=== PATIENT | female | born 1965 | race Caucasian/White ===

== ENCOUNTER 2019-01-19 11:19 | Emergency (ER) | payer OTHER, SELFPAY ==
[2019-01-19 11:21] VITALS: BP 108/66; PULSE 70; RESP 16; TEMP 36.2; O2SAT 98; BMI 22.7
--- NOTE | 2019-01-19 12:40 | ED.VISSUMM ---
- ER Visit Summary Date of Service: 01/19/19 Chief Complaint: Intermittent headache, feeling foggy and right elbow pain status post fall last evening on icy pavement History of Present Illness: The patient is a 53 F presents status post fall secondary to icy pavement. Patient states she struck the back of her head. There is no loss conscious. She had no trouble with sleep. She complains of feeling foggy. She denies photophobia. This may be slight blurred vision. She reports neck discomfort this morning. She denies paresthesia, anesthesia motors. She denies nausea or vomiting. She has no other complaints please read written note. Physical Examination: There is small occipital scalp hematoma noted. There is no clinical signs of basal skull fracture. Pupils equal round reactive. Extra muscle intact. No septal deviation hematoma. No midline cervical spine tenderness. Heart is regular without murmur, gallop or rub. S1 and S2 are normal. Lungs are clear to auscultation with good movement of air bilaterally. There is a small contusion lateral aspect of the right elbow. There is no pain the vision of the lateral medial epicondyle. Is no pain the patient with olecranon process. Is no pain abrasion over the radial head with supination pronation. She has full active range of motion. Axillary, median, radial and ulnar function intact. Radial pulses palpable. GCS is 15. Patient is alert and oriented ?3. Motor is 5/5. Sensation is intact. DTRs are symmetric without clonus or Babinski. Cranial nerves II through XII are intact. Finger to nose to finger was performed adequately. Test Results: None were indicated. Per the [place] CT head rule and the [place] rule radiologic imaging is not indicated. Emergency Department Course and Treatment: Examination, information regarding [place] CT head rule and [place] role and prognosis Treatment Plan: Follow-up with PCP/corporate care as needed Disposition: Discharged home Impression: Concussion without loss of consciousness initial encounter This note was generated with [employer] dictation software. It may contain incorrect words, spelling, and punctuation that were not noted in review of the chart prior to signing ED Disposition - Plan for ED Patient: Disposition: Home or Assisted Living Instructions: ED Concussion Referrals: Mc Cintron DO [Primary Care Provider] - [facility] [GROUP OF PHYSICIANS] - As Needed Additional Instructions: You may take either Aleve or ibuprofen for your headache and muscle pain. Recommend ice 6-8 times a day 20-30 minutes for the first 2-3 days since heat will make areas of injury worse.
--- NOTE | 2019-01-19 12:44 | ED.DCSUM_ITS ---
- ER Visit Summary Date of Service: 01/19/19 Chief Complaint: Intermittent headache, feeling foggy and right elbow pain status post fall last evening on icy pavement History of Present Illness: The patient is a 53 F presents status post fall secondary to icy pavement. Patient states she struck the back of her head. There is no loss conscious. She had no trouble with sleep. She complains of feeling foggy. She denies photophobia. This may be slight blurred vision. She reports neck discomfort this morning. She denies paresthesia, anesthesia motors. She denies nausea or vomiting. She has no other complaints please read written note. Physical Examination: There is small occipital scalp hematoma noted. There is no clinical signs of basal skull fracture. Pupils equal round reactive. Extra muscle intact. No septal deviation hematoma. No midline cervical spine tendern ess. Heart is regular without murmur, gallop or rub. S1 and S2 are normal. Lungs are clear to auscultation with good movement of air bilaterally. There is a small contusion lateral aspect of the right elbow. There is no pain the vision of the lateral medial epicondyle. Is no pain the patient with olecranon process. Is no pain abrasion over the radial head with supination pronation. She has full active range of motion. Axillary, median, radial and ulnar function intact. Radial pulses palpable. GCS is 15. Patient is alert and oriented ?3. Motor is 5/5. Sensation is intact. DTRs are symmetric without clonus or Babinski. Cranial nerves II through XII are intact. Finger to nose to finger was performed adequately. Test Results: None were indicated. Per the [place] CT head rule and the [place] rule radiologic imaging is not indicated. Emergency Department Course and Treatment: Examination, information regarding [place] CT head rule and [place] role and prognosis Treatment Plan: Follow-up with PCP/corporate care as needed Disposition: Discharged home Impression: Concussion without loss of consciousness initial encounter This note was generated with [employer] dictation software. It may contain incorrect words, spelling, and punctuation that were not noted in review of the chart prior to signing ED Disposition - Plan for ED Patient: Disposition: Home or Assisted Living Instructions: ED Concussion Referrals: Mc Cintron DO [Primary Care Provider] - [facility] [GROUP OF PHYSICIANS] - As Needed Additional Instructions: You may take either Aleve or ibuprofen for your headache and muscle pain. Recommend ice 6-8 times a day 20-30 minutes for the first 2-3 days since heat will make areas of injury worse.
== END 2019-01-19 13:08 | disposition home or self-care (01) ==
PROVIDERS: Emergency Provider Emergency Medicine; Family Provider Student in an Organized Health Care Education/Training Program; PCP Student in an Organized Health Care Education/Training Program
DX: S06.0X0A Concussion without loss of consciousness, initial encounter (principal); S00.03XA Contusion of scalp, initial encounter; R40.2410 Glasgow coma scale score 13-15, unspecified time; W00.9XXA Unspecified fall due to ice and snow, initial encounter; Y93.9 Activity, unspecified; Y92.9 Unspecified place or not applicable
CPT/HCPCS: 99282

== ENCOUNTER 2019-03-14 10:45 | Emergency (ER) | payer OTHER, SELFPAY ==
[2019-02-09 14:52] VITALS: BMI 22.7
[2019-03-14 10:46] VITALS: BP 120/72; PULSE 78; RESP 17; TEMP 36.4; O2SAT 100; BMI 23.3
--- NOTE | 2019-03-14 10:54 | CT_ITS ---
STUDY: CT ABDOMEN AND PELVIS WITHOUT CONTRAST REASON FOR EXAM: Female, 53 years old. Acute onset of right flank pain RADIATION DOSAGE (If Supplied By Facility): CTDIvol = ( 6.65 ) mGy, DLP = ( 300.82 ) mGycm TECHNIQUE: Transaxial images were obtained from the dome of the diaphragm to the symphysis pubis without oral contrast, and without intravenous contrast. Sagittal and coronal images were reconstructed. Individualized dose optimization techniques were used for this CT. COMPARISON: None. FINDINGS: The visualized lung bases are unremarkable. The visualized portions of the heart are within normal limits. Normal liver. Normal gallbladder and extrahepatic biliary system. Normal spleen. Normal pancreas. Normal bilateral adrenal glands. Mild right hydronephrosis with moderate hydroureter (and tortuosity) extending to the upper right pelvis with a 3 mm ureteric calculus evident on image 124. There are small calcifications of the left kidney measuring up to 4 mm without hydronephrosis. No ureteric calcifications on the left side. Normal visualized stomach. Normal small intestine. Normal colon. The appendix is visualized and appears normal. Normal abdominal aorta. Normal inferior vena cava. Normal retroperitoneum. Normal urinary bladder. Normal visualized uterus. There is a small umbilical hernia containing fat. Normal osseous structures. CT/Abdomen/Pelvis without Cont IMPRESSION: 1. Distal right ureter calculus with mild hydronephrosis and moderate hydroureter. 2. Nonobstructing left renal calculi. Electronically Signed: Jovani Hussein MD at 12:24 EDT , Service support ,
--- NOTE | 2019-03-14 10:56 | ED.VIS.GEN ---
History of Present Illness Chief Complaint: Flank Pain Informant: Patient Onset: Today Context: Sudden Onset Timing: Continuous, Waxes and wanes Quality: Severe colicky pain Location: Right lower quadrant and right flank Current Severity: Moderate Maximum Severity: Severe Worsened by: Nothing Relieved by: Nothing Associated Symptoms: Nausea Narrative: Patient is a 53-year-old female with no sniffing a past medical history. Last kidney stone that necessitated visit to ER was 11 years ago. She was awakened from sleep. She is taking several doses of Advil with no relief. She states normally the stone passes without significance. She does report nausea without vomiting diarrhea. She does report frequency and urgency. Denies hematuria or dysuria. She denies fever, shaking chills or night sweats. She denies HEENT, respiratory, cardiac symptoms. There is no history of trauma. She reports allergy to penicillin. Prior similar symptoms: Yes - 11 years ago Recent Illness/Hospitalization: No - Past Medical History (1) History of renal calculi Status: Acute Past Medical History - Allergies and Home Meds Allergies/Adverse Reactions: Allergies Penicillins Allergy (Verified 03/14/19 10:45) [facility] Primary Care Physician: Mc Cintron DO [Primary Care Provider] - Prior records reviewed: Yes - ER visit for concussion Past Medical History: - - Renal and ureteral lithiasis Surgical History: no surgical history Lives: Spouse/ Significant Other Smoking Status: Never smoker Alcohol: Rare Review of Systems General: Denies: Chills, Fever, Sweats Eyes: Denies: Visual changes - bilaterally, Diplopia ENT: Denies: Rhinorrhea, Sore throat Cardiovascular: Denies: Chest pain, Palpitations Respiratory: Denies: Dyspnea, Cough, Dyspnea on exertion Gastrointestinal: Reports: Abdominal pain - Right lower quadrant/inguinal region. Denies: Nausea, Vomiting, Diarrhea, Melena, Hematochezia Genitourinary: Reports: Frequency. Denies: Dysuria, Hematuria Musculoskeletal: Reports: Back pain - Right flank. Denies: Extremity Pain Skin: Denies: Rash, Wounds Neurological: Denies: Headache, Weakness, Numbness Hematologic: Denies: Easy bruising, Easy bleeding Allergy: Denies: Uticaria Physical Exam Vital Signs/Narrative: Vital Signs Temp Pulse Resp BP Pulse Ox 03/14/19 10:46 97.5 F L 78 17 120/72 100 General: Well nourished, Well developed, Acute Distress Head: Normocephalic, Atraumatic Eyes: Perrl, EOMI. Negative for: Pale conjunctiva, Scleral icterus ENT: Moist mucous membranes, No rhinorrhea Neck: Supple, Nontender Cardiovascular: Regular rate, Regular rhythm, No murmurs, Normal S1, Normal S2 Respiratory: No distress, CTA bilaterally, Chest nontender Abdomen: Soft, Nontender, Nondistended, Normal bowel sounds, No masses Back: Nontender, Normal Inspection. Negative for: CVA tenderness Extremities: Nontender, No edema Skin: Normal color, No rash Neurological: Alert, Oriented x3, Cranial nerves II-XII grossly intact, Normal Strength, Normal Sensation Psychological: Normal affect, Normal Mood Diagnostic/Tx/Re-eval Impressions Abdomen/Pelvis CT 03/14/19 10:54 IMPRESSION: 1. Distal right ureter calculus with mild hydronephrosis and moderate hydroureter. 2. Nonobstructing left renal calculi. Electronically Signed: Jovani Hussein MD at 12:24 EDT , Service support , 03/14/19 10:54 Abdomen/Pelvis without Cont [CT] Stat Laboratory Results 03/14/19 10:50 Urine Color Yellow Urine Clarity Clear Urine pH 6.0 Ur Specific [place] 1.020 Urine Protein 30 H Urine Glucose (UA) Normal Urine Ketones 5 H Urine Occult Blood 250 H Urine Nitrite Positive H Urine Bilirubin Negative Urine Urobilinogen Normal Ur Leukocyte Esterase 100 H Urine RBC 5-10 SEEN Urine WBC 5-10 SEEN Ur Squamous Epith Cells 0-5 SEEN Urine Bacteria 1+ Urine Mucus 0 SEEN - Medical Decision Making With abrupt onset of discomfort that is waxing waning and unable to find position of comfort suspect patient has an obstructing ureteral lithiasis on the right. IV was established. She received IV Toradol and Zofran. We will obtain UA and CT of the abdomen and pelvis without contrast to evaluate for location, size of stone and for hydro-nephrosis and hydroureter I was informed at 1117 the patient is writhing in pain. Dilaudid was ordered. I was informed at 1135 patient is still in significant pain. Additional Dilaudid was ordered. Since patient has pyuria with bacteria culture was sent. She received a dose of IV ciprofloxacin. She is in no discomfort presently. Plan is to discharge to home with outpatient follow-up with urology. She was instructed to return immediately if she develops a fever has shaking chills or unable to keep any medication down. ED Disposition - Plan for ED Patient: Disposition: Home or Assisted Living Diagnosis: Hydronephrosis with urinary obstruction due to ureteral calculus, Urinary tract infection Instructions: ED Stone Renal W Colic, ED Kidney Infec Female Prescriptions: Oxycodone HCl/Acetaminophen [Percocet 5/325] 1 tablet PO Q6H PRN PRN 5 Days #20 tablet PRN Reason: Pain Ciprofloxacin HCl 500 mg PO BID #14 tablet Referrals: Mc Cintron DO [Primary Care Provider] - Angel Noguera MD [STAFF PHYSICIAN] - 5-7 Days
[2019-03-14] MEDS: Ondansetron 4 MG/2 ML Vial IV (11:05)
[2019-03-14] MEDS: 0.9% Normal Saline 1,000 ML 250 ML IV (11:05)
[2019-03-14] MEDS: Ketorolac 30 MG/ML Syringe 15 MG IV (11:06)
--- NOTE | 2019-03-14 11:20 | ED.RN ---
THIS RN TO BEDSIDE TO REASSESS PAIN, PT DENIES ANY RELIEF, DR. CELIS MADE AWARE, ADDITIONAL ORDERS OBTAINED.
[2019-03-14] MEDS: HYDROmorphone 0.5 MG/0.5 ML SYRINGE IV ×2 (11:22→11:39)
--- NOTE | 2019-03-14 11:36 | ED.RN ---
PAIN REASSESSED, PT STATES THE DILAUDID TOOK THE EDGE OFF BUT COMPLAINS OF CONTINUED PAIN, DR. CELIS MADE AWARE.
[2019-03-14 11:44] LABS: Mucous, Urine 0 SEEN /hpf (<or=2+)
[2019-03-14 12:00] LABS: Bacteria 1+ /hpf (None Seen); Color, Urine Yellow (Yellow); Glucose, Dipstick Normal (Normal); Ketone-Dipstick 5 mg/dl (Negative); Leukocyte Esterase-Dipstick 100 /ul (Negative); Nitrite-Dipstick Positive (Negative); Occult Blood-Urine 250 /ul (Negative); Protein-Dipstick 30 mg/dl (Negative); Red Blood Cells-Urine 5-10 SEEN /hpf (0-5); Squamous Epithelial Cells - UA 0-5 SEEN /hpf (5-10); Urine Bilirubin Dipstick Negative (Negative); Urine Clarity Clear (Clear); Urine Urobilinogen Normal (Normal); White Blood Cells 5-10 SEEN /hpf (0-5)
[2019-03-14] MEDS: HYDROmorphone 1 MG/ML Syringe IV (12:41)
[2019-03-14 12:47] VITALS: BP 113/68; PULSE 67; RESP 17; O2SAT 97
[2019-03-14] MEDS: Ciprofloxacin 400 MG/200 ML BAG 200 MG IV (13:31)
[2019-03-14 14:43] VITALS: BP 105/52; PULSE 72; RESP 17; O2SAT 100
--- NOTE | 2019-03-14 14:44 | ED.RN ---
IV DC'ED, CATHETER INTACT, SMALL GAUZE DRESSING PLACED. DISCHARGE INSTRUCTIONS GIVEN TO AND REVIEWED WITH PATIENT AND SPOUSE, BOTH DENY QUESTIONS OR CONCERNS AND VOICE UNDERSTANDING OF DISCHARGE INSTRUCTIONS. URINE STRAINERS GIVEN WITH PATIENT TO GO HOME WITH AND INSTRUCTED ON USAGE. PATIENT TO EXIT VIA WHEELCHAIR.
== END 2019-03-14 14:45 | disposition home or self-care (01) ==
PROVIDERS: Emergency Provider Emergency Medicine; Family Provider Student in an Organized Health Care Education/Training Program; PCP Student in an Organized Health Care Education/Training Program
DX: N13.2 Hydronephrosis with renal and ureteral calculous obstruction (principal); N39.0 Urinary tract infection, site not specified; Z87.442 Personal history of urinary calculi
CPT/HCPCS: 74176; 81001; 87077; 87086; 87088; 87186; 96361; 96365; 96375; 96376; 99283; J7030; A4216; J0744; J2405

== ENCOUNTER → 2020-10-12 18:02 | Outpatient (CLI) | payer OTHER, SELFPAY | PROVIDERS: PCP Student in an Organized Health Care Education/Training Program; Referring Provider Nurse Practitioner Family; Visit Provider Nurse Practitioner Family | DX: Z11.59 Encounter for screening for other viral diseases (principal) | CPT/HCPCS: 87635; 88305; C9803; U0003 ==

== ENCOUNTER 2023-08-22 06:01 | Day surgery (SDC) | payer OTHER, SELFPAY ==
[2023-08-22] VITALS (9 sets, daily range): BP systolic 105–117; BP diastolic 65–80; PULSE 65–84; RESP 16; TEMP 36.3–36.8; O2SAT 94–100; BMI 25.0
[2023-08-22 06:51] LABS: Internal QC Validated? YES +Cl - CLEAR BKGD; Pregnancy, Urine Negative Negative
[2023-08-22] MEDS: Lactated Ringers 1,000 ML 15 ML IV (06:57)
[2023-08-22 06:58] LABS: Hematocrit 41.6 % (37-47); Mean Corp Hgb Conc 33.7 g/dL (32-36); Mean Corpuscular Hgb 30.6 pg (27.0-32.0); Mean Corpuscular Volume 90.8 fL (81-99); Mean Platelet Vol. 9.2 fl (6.2-12.0); Platelet Count 242 K/mm3 (150-450); RBC Distribution Width CV 12.7 % (11.6-14.6); RBC Distribution Width SD 42.2 fl (35.1-43.9); Red Blood Count 4.58 M/mm3 (4.2-5.4); White Blood Count 5.4 K/mm3 (4.4-11.0)
--- NOTE | 2023-08-22 07:24 | PCM.HP.BLA ---
History and Physical Date of Admission: 08/22/23 PROBLEM: PMB ? DIAGNOSIS: PMB ? PAST SURGICAL HISTORY: PAST SURGICAL HISTORYExpand by Default PAST SURGICAL HISTORY Procedure Laterality Date ? COLONOSCOPY FLX DX W/COLLJ SPEC WHEN PFRMD ? 02/19/2018 ? Colonoscopy ? ? PAST MEDICAL HISTORY: PAST MEDICAL HISTORYExpand by Default PAST MEDICAL HISTORY Diagnosis Date ? 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 Benign head tremor ? ? mild ? Concussion ? ? Cyst of right breast ? ? benign ? Dystonia ? ? Lactose intolerance 01/2020 ? (normal spontaneous vaginal delivery) ? ? 1996,2002 ? 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 Renal stone ? ? calcium oxalate ? TMJ diseases ? ? ? SUBJECTIVE: PMB on HRT. No further bleeding ? SOCIAL HISTORY: SOCIAL HISTORYExpand by Default Social History ? Tobacco Use ? Smoking status: Never ? Smokeless tobacco: Never Vaping Use ? Vaping Use: Never used Substance Use Topics ? Alcohol use: Yes ? ? Comment: Occasionally ? Drug use: No ? ? ALLERGIES ALLERGIES Allergen Reactions ? Penicillins Unknown ? Current Outpatient Medications on File Prior to Visit Medication Sig ? valACYclovir (VALTREX) 500 mg tablet Take 1 tablet by mouth twice daily as needed. ? amitriptyline (ELAVIL) 25 mg tablet Take 1 tablet by mouth daily at bedtime. ? [id number] mg cap Take by mouth. ? FLAXSEED ? ? MAGNESIUM GLYCINATE-MAG OXIDE ORAL Take by mouth. 5oo mg ? famotidine (PEPCID) 20 mg tablet Take 1 tablet by mouth at bedtime as needed. ? cholecalciferol, Vitamin D3, (VITAMIN D3) 1,250 mcg (50,000 unit) cap capsule Take 1 capsule by mouth one time a week. ? tamsulosin (FLOMAX) 0.4 mg Take 1 capsule by mouth daily at bedtime. As needed for kidney stone flank pain (Patient taking differently: Take 0.4 mg by mouth as needed. As needed for kidney stone flank pain) ? adapalene (DIFFERIN) 0.1 % cream Apply 1 application to affected area daily at bedtime. ? diclofenac sodium (VOLTAREN) 1 % topical gel Apply 2 g to affected area four times daily. For heel pain ? zolpidem (AMBIEN) 10 mg Take 1 tablet by mouth at bedtime as needed (insomnia) for up to 30 days. ? estradiol (ESTRACE) 0.01 % (0.1 mg/gram) vaginal cream Apply pea-sized amount to perineum and 1 applicator vaginally Mon, Wed, Fri for atrophic vaginitis. (Patient not taking: Reported on 08/19/2023) ? No current facility-administered medications on file prior to visit. ? Pelvic US: Uterus: -Size: 8.9 x 4.3 x 5.2 cm -Orientation: Anteverted -Endometrial echo complex: Evaluation of the endometrium was suboptimal. No endometrial abnormality. The endometrial echo complex measured 0.7 cm. -Cervix: Unremarkable. -Adenomyosis assessment: There are no sonographic findings of adenomyosis. -Fibroids: Single intramural anterior uterine body fibroid of 1.4 cm. ? The myometrium is heterogeneous Right Ovary: 2.1 x 1 x 1.6 centimeters. Normal in appearance Left Ovary: 1.8 x 1 x 2 centimeters. Normal in appearance Free Fluid: No evidence of free fluid ? ? OBJECTIVE: ? VITALS: BP 104/60 Pulse 84 Resp 16 Wt 134 lb (60.8 kg) LMP 10/29/2022 BMI 24.35 kg/m? ? HEENT: Normocephalic, atraumatic, Mucus membranes moist without lesions. ? SKIN: No lesions. ? CHEST: Clear to auscultation. No wheezes or rales. Good air exchange. ? HEART: Regular rate and rhythm No S3 or S4. No gallops or rubs. ? BACK: Nontender with no CVA tenderness. ? ABDOMEN: Soft, non-tender, non-distended, no masses, no hepatosplenomegaly. ? LOWER EXTREMITIES: There was no pitting edema, no palpable cords and no skin changes. ? ? ? ASSESSMENT: PMB ? PLAN: 1) Discussed hysteroscopy, D&C, possible polypectomy. The rationale for the proposed surgery was discussed in addition to risks, benefits, and alternatives. General pre- and post-operative care was reviewed. Questions were answered. After discussion, the patient indicated a desire to proceed with the planned surgery. ? Beverley Souza, DO Assessment & Plan Assessment/Plan (1) PMB (postmenopausal bleeding): PLAN: Patient was seen in preop. Surgery was reviewed and no changes noted to history and physical. To proceed with surgery as planned.
--- NOTE | 2023-08-22 07:30 | EMB_PTH ---
PATIENT: JODY DECKER LOC: [facility] U#:[id number] AGE/SX: 58/F ROOM: RE08/22/[address]: Dr. Beverley Souza DO : 1965 BED: DIS: 08/22/2023 SPEC #: [id number] RECD: 08/22/23 09:29 STATUS: TA CHRISTINA #: [id number] SHAE: 08/22/23 07:[address]: Beverley Souza DEPT: SURGICAL PATHOLOGY RECD BY: Juan Daniel Power ENTERED: 08/22/23 12:27 SP TYPE: ENDOM BX/C SVEN DR: Dr. Mc Cintron DO Tissues: Endometrium, NOS Procedures: Surgery Specimen Level IV HEADER OPERATION: Hysteroscopy, D & C PRE-OP DIAGNOSIS: Postmenopausal bleeding TISSUE SUBMITTED: Endometrial curettings MICROSCOPIC DIAGNOSIS Endometrium, biopsy: Strips of benign superficial glandular tissue. AM:jamar 08/23/2023 MICROSCOPIC DESCRIPTION Slides are reviewed. GROSS DESCRIPTION Received in fixative is one container labeled with the patient's name and designated endometrial curettings. The specimen consists of multiple irregular fragments of red-ramsey soft tissue that in aggregate measure 2.0 x 1.5 x 0.1 cm. The specimen is totally submitted in one cassette. / AM:jamar 08/22/2023 TC:5 CPT: 94358
--- NOTE | 2023-08-22 08:05 | DCINST_ITS ---
Discharge Instructions Diet Discharge Diet: No restrictions Activity Discharge Activity: May Not Drive (for first 24 hours after surgery) and May Not Shower (for first 24 hours after surgery) May resume sexual activity in: 1-2 weeks (nothing in the vagina and no soaking in water until the vaginal bleeding stops in 1-2 weeks) Weight Bearing Status: Weight bearing as tolerated Lifting Restrictions: none Dressing / Incision Call your doctor if you observe: Fever of 101 or Higher, Coldness, Increased Pain, Numbness or Tingling, Change in Color, Inability to urinate, Inability to have a bowel movement, Using more than 1 pad per hour, Shortness of breath, Dizziness, Fainting spells, Swelling in the ankles, Chest pain, Increased palpitations (irregular heartbeat), Calf discomfort and Uncontrolled pain Follow Up Care Please Follow Up With: Beverley Souza DO When: 1-2 weeks post op Test Results: Test results from this visit will be discussed in further detail at your follow- up appointment, if applicable. Discharge Plan Admission Primary Reason for Your Visit: surgery Attending Provider: Beverley Souza Primary Care Provider: Mc Cintron Instructions Patient Instructions: Dilation and Curettage Discharge Orders/Prescriptions Prescriptions: Continued amitriptyline 25 mg tablet 25 mg PO QHS krill oil 500 mg capsule 1,000 mg PO DAILY flax seed 720 mg PO DAILY magnesium glycinate 100 mg magnesium capsule 500 mg PO DAILY aspirin 81 mg capsule 81 mg PO DAILY famotidine [Acid Controller] 20 mg tablet 20 mg PO DAILY PRN (Reason: acid reflux) valacyclovir 500 mg tablet 500 mg PO DAILY PRN (Reason: cold sores) zolpidem [Ambien] 10 mg tablet 3 mg PO QHS lactase [Lactaid] 3,000 unit tablet 3,000 unit PO DAILY Referrals / Follow Up: Mc Cintron DO [Primary Care Provider] - Disposition Disposition (needs filled in before D/C Order can be placed): Home, Self Care
--- NOTE | 2023-08-22 08:06 | PCM.OPRPT ---
Problems Associated Problem List Diagnoses (1) PMB (postmenopausal bleeding): Report of Operation Date of Procedure: 08/22/23 Pre-Operative Diagnosis: PMB Post-Operative Diagnosis: As above Surgery/Procedure Performed:: Hysteroscopy D&C Description of Surgical Findings:: Stenotic cervix. Cystocele and apical prolapse noted. Normal appearing uterine cavity without lesions. Atrophic appearing endometrium. Uterus sounded to 7 cm. Surgeon: Beverley Souza Type of Anesthesia: MAC Special Medications: None Specimen's removed: Endometrial curettings Drains: None Estimated Blood Loss (mL): < 50 Fluids Replaced: 350 cc fluid deficit Description of Procedure: The patient was taken to the operating room where MAC anesthesia was induced. She was prepped and draped in the dorsal lithotomy position using yellow fin stirrups. A weighted speculum was placed in the vagina to expose the cervix. A single-tooth tenaculum was placed on the anterior lip of the cervix. The cervix was noted to be stenotic. The cervix was serially dilated to accommodate the hysteroscope. The Symphion hysteroscope was advanced into the uterus and distended with normal saline as distention media. The uterine cavity was normal-appearing and bilateral tubal ostia were visualized. There were no polyps or fibroids noted. The endometrium was atrophic appearing. The hysteroscope was then removed. A sharp curettage was performed for minimal tissue. The endometrial curettings were sent to pathology for review. Bleeding was hemostatic. All instruments were removed from the vagina. A vaginal sweep was performed. The patient was taken to the recovery room in stable condition. Grafts/Implants Used: None Procedure Start Time: 07:41 Procedure Stop Time: 08:01 Complications None Admit VTE Documentation VTE Present on Admission: No VTE Mechan Device Prophylaxis: SCD's
== END 2023-08-22 09:42 | disposition home or self-care (01) ==
LOC: SDC 06:10 → AC 06:10
PROVIDERS: Anesthesiology; PCP Student in an Organized Health Care Education/Training Program; Referring Provider Obstetrics & Gynecology; Visit Provider Obstetrics & Gynecology
PROC: 0UB98ZZ Excision of Uterus, Via Natural or Artificial Opening Endoscopic (ICD-10-PCS; CPT 58558; principal; 2023-08-22 07:15)
DX: N95.0 Postmenopausal bleeding (principal); K21.9 Gastro-esophageal reflux disease without esophagitis; Z79.82 Long term (current) use of aspirin
CPT/HCPCS: 58558; 00952; 81025; 85027; 86850; 86900; 86901; 88305; J7120; J2405

== ENCOUNTER 2024-04-03 13:20 | Outpatient (RCR) | payer BC, SELFPAY ==
--- NOTE | 2024-04-14 08:01 | HP.PTEVAL_ITS ---
Patient's Visit Information Visit Information Visit Information: JODY DECKER is a 58 year old F referred to Physical Therapy by Dr. Mc Cintron DO with a diagnosis of Acute R shoulder pain. Date of Evaluation: 04/03/24 Physical Therapist: Rock Rain DPT Visit Plan Frequency: 1x/Week Duration: 6 Weeks Plan: Start with RTC strengthening and scapular stability exercises. Pt. to complete on own then follow back up with PT. exercises given: mid row, shoulder ER, shoulder ER and SL shoulder ER. Bands given today. Subjective Subjective: Pt. is here today for her initial evaluation with diagnosis of acute R shoulder pain. Pt. reports no mech of injury, but has been feeling increased pain with over head reaching and reaching out in front of her. Pt. denies N/T. Pt. has been lifting, but has had to modify some of her activities due to soreness. Pt. is sleeping okay. Her biggest complaint is getting back to her exercises. Pt. reports pain at posterior and lateral aspect of her R shoulder with over head movements. Pt. would like to reduce her pain in her shoulder allowing her to get back to all reactional activities without limitations. Pain R shoulder: Pain Intensity (Out of 10): 1 Pain Intensity Range: 0 and 2 Objective Objective: POSTURE: Pt. has slight rounded shoulders, but normal head positioning. Pt. is able to correct with VC/TCing. PALPATION: Pt. has tenderness along biceps tendon, not as much throughout lateral sub acromial space. NEURO: Pt. has normal sensation and normal DTR of BUEs. ROM: L shoulder full motion without issues. R shoulder: Pt. has close to full motion of R shoulder, but does have some soreness with end range flexion with OP, slight increase in pain with end range functional IR motion. MMT: L shoulder 5/5 throughout. R shoulder: flexion 4+/5, abd 4+/5, ext 5/5, IR 5/5, ER 4+/5 mild increase in symptoms with ER and with flexion motions but only slight. Special Tests R Shoulder Lift Off Test - Subscapular Tear: Negative R Shoulder Drop Sign - IS Test: Negative R Shoulder Empty Can - SS: Negative R Shoulder Belly Press - SupScap: Negative R Shoulder Neer - Impingement: Negative R Shoulder Man Tacho - Impingement: Positive R Shoulder Biceps Load Test - Labrum: Negative R Shoulder Speeds Test - Labrum/Biceps: Negative Balance/Special Test Scores Quick DASH Score: 25.0000 Goals Goal 1:: LTG: Pt. to be I with HEP. Goal Time Frame: 4-6 Weeks Goal 2:: STG: pt. to have no pain with full ROM of R shoulder. Goal Time Frame: 2-4 Weeks Goal 3:: LTG: PT. to have symmetrical strength between BUEs. Goal Time Frame: 4-6 Weeks Goal 4:: LTG: Pt. to complete all working out activities without increase in R shoulder pain. Goal Time Frame: 4-6 Weeks Rehabilitation Potential Physical Therapy Diagnosis: Pt. has signs and symptoms consistent with R shoulder pain. Pt. has some pain with loading of her RTC tissue. Pt. would benefit from PT to address the above issues progressing as tolerated. Rehabilitation Potential: Excellent Anticipated Interventions Patient/Client Instruction: Educate patient on: Condition, Plan of Care, Risk Factors and Benefits of Fitness Program For the Purpose of:: To facilitate caregiver knowledge, To improve self management, To prevent re-injury, To improve ability to perform tasks related to life management and To improve tolerance to ADL's Therapeutic Exercise to Include: Strength training, Power training, Flexibilty training and Scapular Strength/Stabilization For the Purpose of:: To decrease pain, To increase ROM, To improve nutrient delivery to tissue, To increase oxygenation perfusion and To improve muscle performance and motor function Text: Thank you for the opportunity to evaluate your patient. For Medicare and Medicare HMO plans, please review the plan of care and approve it. It will need to be FAXED BACK to us at [phone] for Medicare purposes. For Medicare only, by signing this I certify the plan of care. Please let me know if there are questions or concerns regarding this plan of care. Physician Signature: Date:
== END 2024-04-03 19:00 | disposition home or self-care (01) ==
LOC: PT 13:20
PROVIDERS: PCP Student in an Organized Health Care Education/Training Program; Referring Provider Student in an Organized Health Care Education/Training Program; Visit Provider Student in an Organized Health Care Education/Training Program
DX: M25.511 Pain in right shoulder (principal)
CPT/HCPCS: 97110; 97161

== ENCOUNTER 2024-10-02 12:30 | Outpatient (RCR) | payer BC, SELFPAY ==
--- NOTE | 2024-08-10 13:01 | HP.PTEVAL_ITS ---
Patient's Visit Information Visit Information Visit Information: JODY DECKER is a 59 year old F referred to Physical Therapy by CHARISSA MIN with a diagnosis of Adhesive Capsulitis R shoulder. Date of Evaluation: 08/10/24 Physical Therapist: Mary Roman, PT, Cert MDT Visit Plan Frequency: 2-3x /Week Duration: 4-6 Weeks Plan: PT 2-3 TIMES A WK X 8-12 WKS FOR R SHLD MODALITIES NEEDED INCLUDING MH, US, DRY NEEDLING, E-STIM AND CP TO DECREASE PAIN AND INFLAMMATION. R SHLD A/AA/PROM AND JOINT MOBILIZATION TO INCREASE ROM. POSTURE AND R UE STRENGTHENING. HEP. Subjective Subjective: Diagnosis: ADHESIVE CAPSULITIS R SHOULDER Work/Leisure: [employer] - WORKING 2 - 12 HOUR SHIFTS. 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 Disability: NO Present symptoms: R SHOULDER PAIN. PATIENT DENIES NECK PAIN AND PAIN DOWN THE ARM AT ELBOW AND BELOW. PATIENT DENIES R UE NUMBNESS AND TINGLING. Present since: JAN 2024 Pain Scale: Worst - 9/10 Least - 0/10 Currently: 0/10 Commenced as a result of: LIFTING WEIGHTS. USING 8 LB DUMBELLS (DOING FORWARD A ND LATERAL RAISES WHEN NOTICED IT). HAD STARED WITH 3 LBS ON YOUTUBE ABOUT 6 MONTHS PRIOR. Symptoms at onset: R SHLD AND UPPER ARM PAIN Worse: SLEEPING ON R SIDE, DOG PULLING ON LEASH, ANY SUDDEN MVMT OF R UE OUT TO SIDE, REACHING BACK WITH R UE, TRYING TO REACH UP, TO THE FRONT AND OUT TO THE SIDE. PULLING. Better: JUST STOPPING THE MVMT AND WAITING Disturbed sleep: DOESN'T WAKE ME UP BUT KEEPS ME UP. Previous history/Previous treatment: SAW PCP. TRIED STEROID AND REST X 2 WKS. DIDN'T GET BETTER SO PCP REFERRED TO PT. PT EVAL APRIL 2024 - HEP X 4 WEEKS - PAIN GOT WORSE AND ROM GOT WORSE SO STOPPED HEP. DID NOT FOLLOW UP WITH PT BECAUSE INSURANCE DID NOT COVER PT. HAD ORTHO CONSULT WITH A PA 06/16/24 STATES SHE REC'D A STEROID INJECTION AND SUBMITTED FOR MRI. SHE STATES THE FIRST STEROID INJECTION DID NOT HELP AT ALL. AFTER THE MRI SHE SAW DR. MIN AN ORTHO SPECIALIST IN [place] 07/31/24 FOR THE MRI RESULTS AND RECEIVED ANOTHER STEROID INJECTION. THIS SECOND STEROID INJECTION WAS MORE IN THE SHLD JT PER PATIENT REPORTS AND RESULTED IN ~50% BENEFIT. Dizziness: NO Tinnitus: NO Nausea: NO Shortness of Breath: NO Difficulty Swollowing: NO Gait: NO Accidents: NO Unexplained weight loss: NO Imaging: PATIENT STATES SHE HAD AN MRI JUNE 24 2024 SHOWING MINOR TEARING OF LABRUM, TENDONOSIS, BURSITIS AND ALSO MILD ARTHRITIS. PATIENT REPORTS THEY TOLD HER THE ROTATOR CUFF IS COMPLETEY NORMAL. SHE STATES DR. MIN TOLD HER THE MRI IS NORMAL AND HE DOES NOT FEEL ANYTHING IN IT IS CAUSING THE ISSUE. ALSO HAD A SHLD X-RAY - NORMAL PER PATIENT REPORT. PMH/Recent major surgery: R TORE HIP LABRUM AND ARTHRITIS - CHRONIC PINCHING/PAIN. Objective Objective: Sitting Posture/Standing Posture: FAIR. SLIGHT ROUNDED SHOULDERS BUT NORMAL HEAD POSITION. DOWAGERS HUMP. Sensory deficit: CARLOS UE LIGHT TOUCH SENSATION IS GROSSLY INTACT AND SYMMETRICAL. ROM deficit: L UE WFL. AROM R SHLD IN STANDING: FLEX 95 DEG. ABD 65 DEG. PROM R SHLD IN SUPINE: FLEX 118 DEG, SCAPTION 82 DEG, ER 17 DEG, IR 40 DEG (ROTATION MEASURED WITH 55 DEG SCAPTION). PATIENT C/O PAIN WITH R SHLD ACTIVE AND PROM TESTING. Motor deficit: L UE 5/5 THROUGHOUT. 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 PATIENT IS R HAND DOMINANT. R SHLD FLEX 2+/5, ABD 2-/5, IR 2+/5, ER 2-/5, ELBOW FLEX 4/5, EXT 4/5. R SHLD STRENGTH TESTED WITH ELBOW AT SIDE: 4-/5 THROUGHOUT WITHOUT C/O PAIN. Cervical Mvmt Loss: Flex: NIL Pro: NIL Ext: MIN Ret: MIN RSB: MIN LSB: MIN R Rot: MIN L Rot: MIN PATIENT DENIES R UE PAIN WITH CERVICAL ROM TESTING. Postural strength: FAIR Palpation: PATIENT DENIES TENDERNESS WITH PALPATION OF CARLOS SHLD, UPPER THORACIC, AND NECK AND OCCIPUT REGIONS. Balance/Special Test Scores Quick DASH Score: 47.7250 Goals Goal 1:: PATIENT WILL REPORT AT LEAST 50% LESS R SHLD PAIN WITH NORMAL ADL'S. Goal Time Frame: 6-8 Weeks Goal 2:: PATIENT WILL HAVE INCREASED R SHLD ROM TO EASE ADL'S. Goal Time Frame: 6-8 Weeks Goal 3:: PATIENT WILL HAVE INCREASED R SHLD STRENGTH TO EASE ADL'S. Goal Time Frame: 6-8 Weeks Goal 4:: PATIENT WILL SCORE AT LEAST 10 POINTS BETTER ON THE QUICK DASH QUESTIONNAIRE Goal Time Frame: 6-8 Weeks Goal 5:: PATIENT WILL BE INDEP WITH A HEP FOR CONTINUED IMPROVEMENT ONCE FORMAL PHYSICAL THERAPY CONCLUDES Goal Time Frame: 6-8 Weeks Rehabilitation Potential Physical Therapy Diagnosis: R SHLD PAIN, STIFFNESS AND WEAKNESS Rehabilitation Potential: Good Anticipated Interventions Patient/Client Instruction: Educate patient on: Condition, Plan of Care and Risk Factors For the Purpose of:: To improve self management Therapeutic Exercise to Include: Strength training, Postural training, Flexibilty training, Neuromotor development, Passive ROM, Active ROM and Scapular Strength/Stabilization For the Purpose of:: To decrease pain, To increase ROM, To improve muscle performance and motor function, To increase tolerance to activity/condition/position, To improve ability of physical actions for home/community/work/leisure, To increase flexibility/ROM and To improve self management Manual Therapy Techniques to Include: Mobilization, Passive ROM, Functional dry needling and Soft tissue mobilization For the Purpose of:: To decrease pain, To increase ROM, To improve nutrient delivery to tissue, To improve muscle performance and motor function, To increase tolerance to activity/condition/position, To decrease soft tissue restriction and To increase flexibility/ROM TENS: Yes IF ES: Yes Cryotherapy (ice pack, ice massage): Yes Thermo therapy (hot pack): Yes Ultrasound (thermal/non thermal): Yes For the Purpose of:: To decrease pain, To decrease swelling/inflammation and To improve nutrient delivery to tissue Text: Thank you for the opportunity to evaluate your patient. For Medicare and Medicare HMO plans, please review the plan of care and approve it. It will need to be FAXED BACK to us at [phone] for Medicare purposes. For Medicare only, by signing this I certify the plan of care. Please let me know if there are questions or concerns regarding this plan of care. Physician Signature: Date:
--- NOTE | 2024-09-10 14:48 | HP.PTREVAL_ITS ---
Re-Evaluation Intro: CHARISSA MIN, It has been my pleasure to treat JODY DECKER over the last 7 visits for Adhesive Capsulitis R shoulder. Please see the progress note below for an update on the physical therapy plan of care! Subjective Subjective: PATIENT REPORTS THEY WENT OUT OF TOWN AND SHE WAS ABLE TO SPEND A LOT OF TIME STRETCHING. SHE REPORTS SHE ABLE TO USE HER R ARM MORE TO DO HER HAIR AND SHE WAS ABLE TO RAISE HER R ARM FOR THE FIRST TIME TO PUT deodorant ON WITHOUT USING A COUNTER TO PROP IT. OVER-ALL SHE IS REPORTING HER SHLD IS LOOSER AND LESS PAINFUL SINCE STARTING THERAPY. NO PAIN RIGHT NOW BUT BUT SHE CAN PROVOKE PAIN PRETTY EASILY BY STRETCHING IT IN ALMOST ANY DIRECTION. SHE STATES IT ISN'T EASILY PROVOKED NOW ORIGINALLY THOUGH. Objective Objective/Function: PATIENT WAS SEEN TODAY FOR RE-ASSESSMENT OF PROGRESS TOWARD THE SET PT GOALS AND THE NEED FOR FURTHER PHYSICAL THERAPY VS READINESS FOR DISCHARGE. SHE IS MAKING STEADY PROGRESS WITH PT IN TERMS OF R UE ROM AND FUNCTION BUT SHE IS STILL VERY LIMITED ESPECIALLY IN IR AND ER AND WOULD BENEFIT FROM SKILLED THERAPY TO CONTINUE TO IMPROVE. PATIENT IS AGREEABLE AND WOULD LIKE TO CONTINUE. UPON EXAM TODAY: AROM R SHLD IN STANDING: FLEX 145 DEG. ABD 105 DEG. PROM R SHLD IN SUPINE: FLEX 150 DEG, ABDUCTION 120 DEG, ER 12 DEG, IR 23 DEG (ROTATION MEASURED WITH 90 DEG ABDUCTION). Plan Plan Plan: PT 2-3 TIMES A WK X 8-12 WKS FOR R SHLD MODALITIES NEEDED INCLUDING MH, US, DRY NEEDLING, E-STIM AND CP TO DECREASE PAIN AND INFLAMMATION. R SHLD A/AA/PROM AND JOINT MOBILIZATION TO INCREASE ROM. POSTURE AND R UE STRENGTHENING. HEP. Balance/Gait/Functional tests Balance/Special Test Scores Quick DASH Score: 31.8175 Goals Goals Goal 1:: PATIENT WILL REPORT AT LEAST 50% LESS R SHLD PAIN WITH NORMAL ADL'S. Goal Time Frame: 6-8 Weeks Goal Progress: Progressing Goal 2:: PATIENT WILL HAVE INCREASED R SHLD ROM TO EASE ADL'S. Goal Time Frame: 6-8 Weeks Goal Progress: Progressing Goal 3:: PATIENT WILL HAVE INCREASED R SHLD STRENGTH TO EASE ADL'S. Goal Time Frame: 6-8 Weeks Goal Progress: Progressing Goal 4:: PATIENT WILL SCORE AT LEAST 10 POINTS BETTER ON THE QUICK DASH QUE STIONNAIRE Goal Time Frame: 6-8 Weeks Goal Progress: Progressing Goal 5:: PATIENT WILL BE INDEP WITH A HEP FOR CONTINUED IMPROVEMENT ONCE FORMAL PHYSICAL THERAPY CONCLUDES Goal Time Frame: 6-8 Weeks Goal Progress: Progressing Anticipated Interventions Anticipated Interventions Patient/Client Instruction: Educate patient on: Condition, Plan of Care and Risk Factors For the Purpose of:: To improve self management Therapeutic Exercise to Include: Strength training, Postural training, Flexibilty training, Neuromotor development, Passive ROM, Active ROM and Scapular Strength/Stabilization For the Purpose of:: To decrease pain, To increase ROM, To improve muscle performance and motor function, To increase tolerance to activity/c ondition/position, To improve ability of physical actions for home/community/work/leisure, To increase flexibility/ROM and To improve self management Manual Therapy Techniques to Include: Mobilization, Passive ROM, Functional dry needling and Soft tissue mobilization For the Purpose of:: To decrease pain, To increase ROM, To improve nutrient delivery to tissue, To improve muscle performance and motor function, To increase tolerance to activity/condition/position, To decrease soft tissue restriction and To increase flexibility/ROM TENS: Yes IF ES: Yes Cryotherapy (ice pack, ice massage): Yes Thermo therapy (hot pack): Yes Ultrasound (thermal/non thermal): Yes For the Purpose of:: To decrease pain, To decrease swelling/inflammation and To improve nutrient delivery to tissue Re-Evaluation Ending Re-evaluation ending: Please do not hesitate to contact me at [phone] by phone or if you have questions or concerns regarding this new plan of care! Sincerely, Mary Roman, PT, Cert MDT
--- NOTE | 2024-10-02 16:12 | HP.PTREVAL ---
Re-Evaluation Intro: CHARISSA MIN, It has been my pleasure to treat JODY DECKER over the last 12 visits for Adhesive Capsulitis R shoulder. Please see the progress note below for an update on the physical therapy plan of care! Subjective Subjective: IT IS CONTINUING TO IMPROVE. PATIENT REPORTS BEING SORE FROM EXERCISING. Objective Objective/Function: PATIENT WAS SEEN TODAY FOR RE-ASSESSMENT OF PROGRESS TOWARD THE SET PT GOALS AND THE NEED FOR FURTHER PHYSICAL THERAPY VS READINESS FOR DISCHARGE. SHE IS MAKING STEADY PROGRESS WITH PT IN TERMS OF R UE ROM AND FUNCTION BUT SHE IS STILL VERY LIMITED ESPECIALLY IN IR AND ER AND WOULD BENEFIT FROM SKILLED THERAPY TO CONTINUE TO IMPROVE. PATIENT IS AGREEABLE AND WOULD LIKE TO CONTINUE. UPON EXAM TODAY: AROM R SHLD IN STANDING: FLEX 145 DEG. ABD 140 DEG. PROM R SHLD IN SUPINE: FLEX 155 DEG, ABDUCTION 155 DEG, ER 46 DEG, IR 52 DEG (ROTATION MEASURED WITH 90 DEG ABDUCTION). SHE DEMO'D GOOD TECHNIQUE OF NEW EX'S AFTER INSTRUCTION FOR HEP TODAY. Plan Plan Plan: PT 2-3 TIMES A WK X 8-12 WKS FOR R SHLD MODALITIES NEEDED INCLUDING MH, US, DRY NEEDLING, E-STIM AND CP TO DECREASE PAIN AND INFLAMMATION. R SHLD A/AA/PROM AND JOINT MOBILIZATION TO INCREASE ROM. POSTURE AND R UE STRENGTHENING. HEP. Balance/Gait/Functional tests Balance/Special Test Scores Quick DASH Score: 31.8175 Goals Goals Goal 1:: PATIENT WILL REPORT AT LEAST 50% LESS R SHLD PAIN WITH NORMAL ADL'S. Goal Time Frame: 6-8 Weeks Goal Progress: Progressing Goal 2:: PATIENT WILL HAVE INCREASED R SHLD ROM TO EASE ADL'S. Goal Time Frame: 6-8 Weeks Goal Progress: Progressing Goal 3:: PATIENT WILL HAVE INCREASED R SHLD STRENGTH TO EASE ADL'S. Goal Time Frame: 6-8 Weeks Goal Progress: Progressing Goal 4:: PATIENT WILL SCORE AT LEAST 10 POINTS BETTER ON THE QUICK DASH QUESTIONNAIRE Goal Time Frame: 6-8 Weeks Goal Progress: Progressing Goal 5:: PATIENT WILL BE INDEP WITH A HEP FOR CONTINUED IMPROVEMENT ONCE FORMAL PHYSICAL THERAPY CONCLUDES Goal Time Frame: 6-8 Weeks Goal Progress: Progressing Anticipated Interventions Anticipated Interventions Patient/Client Instruction: Educate patient on: Condition, Plan of Care and Risk Factors For the Purpose of:: To improve self management Therapeutic Exercise to Include: Strength training, Postural training, Flexibilty training, Neuromotor development, Passive ROM, Active ROM and Scapular Strength/Stabilization For the Purpose of:: To decrease pain, To increase ROM, To improve muscle performance and motor function, To increase tolerance to activity/condition/position, To improve ability of physical actions for home/community/work/leisure, To increase flexibility/ROM and To improve self management Manual Therapy Techniques to Include: Mobilization, Passive ROM, Functional dry needling and Soft tissue mobilization For the Purpose of:: To decrease pain, To increase ROM, To improve nutrient delivery to tissue, To improve muscle performance and motor function, To increase tolerance to activity/condition/position, To decrease soft tissue restriction and To increase flexibility/ROM TENS: Yes IF ES: Yes Cryotherapy (ice pack, ice massage): Yes Thermo therapy (hot pack): Yes Ultrasound (thermal/non thermal): Yes For the Purpose of:: To decrease pain, To decrease swelling/inflammation and To improve nutrient delivery to tissue Re-Evaluation Ending Re-evaluation ending: Please do not hesitate to contact me at [phone] by phone or if you have questions or concerns regarding this new plan of care! Sincerely, Mary Roman, PT, Cert MDT
== END 2024-10-02 19:00 | disposition home or self-care (01) ==
LOC: PT 12:30
PROVIDERS: PCP Student in an Organized Health Care Education/Training Program
DX: M75.01 Adhesive capsulitis of right shoulder (principal)
CPT/HCPCS: 97035; 97110; 97140; 97162; 97530